=== PATIENT | male | born 1940 | race Caucasian/White ===

== ENCOUNTER 2021-06-30 05:24 | Day surgery (SDC) | payer MEDICARE, BC ==
[~2021-06-30] VITALS: Ht 175.3 cm; Wt 72.5 kg
[2021-06-30] VITALS (13 sets, daily range): BP systolic 148–174; BP diastolic 52–85; PULSE 58–98; TEMP 97.1–98.1
[~2021-06-30 05:24] MED LIST: ELIQUIS 2.5 PO; ELIQUIS 5MG PO; FLOMAX 0.40.4 MG/CAP PO; LANTUS SOLOS100 U/ML SQ; LIPITOR20 MG PO; PHOSLO667 MG PO; PRILOSEC 20MG20 MG PO; SODIUM BICARBO650 MG PO; TEMOVATE OINT30 GM TOP; TOPROL XL 50MG50 MG PO; ZESTRIL 10MG10 MG PO; ZESTRIL 5MG5 MG PO
--- NOTE | 2021-06-30 05:45 | NUR ---
Patient admitted to bay #1 via ambulation. Medications and HX reviewed. Consent reviewed and signed. Patient verbalized understanding of procedure. Patient changed into a clean gown and used the bathroom prior to IV start. IV started in R hand on first attempt with #20. NS is infusing without difficulty and set to 100ml/hr. Blood sugar obtained: 120. Vitals obtained and bp is high, anesthesia notified. Patient admitted to having coffee with cream and sugar at around 0300. DR and anesthesia notified. No new orders. Warm blaket provided. Non-slip socks are on. Kip, his son was present to say goodby before Erin took him back to surgery.
[2021-06-30] MEDS ORDERED: MUCINEX 60600 MG/TA1 PO (07:08)
[2021-06-30] MEDS ORDERED: FERROUS SU325 MG/TAB PO (07:08)
[2021-06-30] MEDS ORDERED: 00186-0372-20 IH (07:08)
--- NOTE | 2021-06-30 10:00 | NUR ---
Pt transferred to surgical status at this time, remains in PACU, awaiting RN to call for report. Son brought to the bedside, post-op vitals started. Pt reports he is thisty and hungry, provided with jello and orange juice. Call light in reach, bed to low position.
--- NOTE | 2021-06-30 10:15 | NUR ---
Pt tolerates fluids and jello well, denies pain or needs, CBI infusing well with output clear-pink. VSS. Call light in reach.
--- NOTE | 2021-06-30 10:39 | NUR ---
Report given to OMAR Lutz. Pt to surgical room 322 at this time by OMAR Hampton, belongings at bedside and son to room.
--- NOTE | 2021-06-30 14:28 | NUR ---
Dr Candelario notified of consult at 9001.
[2021-06-30 15:29] LABS: BASO # 0.1 K/mm3 (0.0-0.2); BASO % 0.8 % (0.0-2.0); EOS # 0.5 K/mm3 (0.0-0.7); EOS % 5.2 % (0-4.0); GRAN # 6.8 K/mm3 (1.4-6.5); GRAN % 77.5 % (42.2-75.2); HEMATOCRIT 37.7 % (42.0-52.0); HEMOGLOBIN 11.4 g/dl (13.5-18.0); LYMPH # 0.8 K/mm3 (1.2-3.4); LYMPH % 8.6 % (20.0-51.0); MEAN CELL VOLUME 99 fl (80.0-100.0); MEAN CORPUSCULAR HEMOGLOBIN 30 pg (27.0-31.0); MEAN CORPUSCULAR HGB CONC 30 g/dl (33.0-37.0); MEAN PLATELET VOLUME 9.2 fl (7.4-10.4); MONO # 0.6 K/mm3 (0.1-0.6); MONO % 7.3 % (1.7-9.3); PLATELET COUNT 162 K/mm3 (130-400); RED BLOOD COUNT 3.81 M/mm3 (4.20-5.60); REDCELL DISTRIBUTION WIDTH-CV 15.6 % (11.5-14.5)
[2021-06-30 15:43] LABS: ALBUMIN 2.5 gm/dL (3.4-4.8); CALCIUM 7.6 mg/dL (8.4-10.2); CREATININE, serum 2.43 mg/dL (0.72-1.25); PHOSPHOROUS 2.6 mg/dL (2.3-4.7); POTASSIUM 4.7 mmol/L (3.5-4.5)
--- NOTE | 2021-06-30 16:10 | NUR ---
Patient alert and oriented, answers questions appropriately. Fay catheter patent. CBI infusing at moderate rate. Urine deep joy, no clots noted. Three way catheter and CBI education provided to patient and son. No c/o at this time.
--- NOTE | 2021-06-30 18:43 | NUR ---
PATIENT TOLERATED HIS HD TX WITH 600ML OF FLUID REMOVED TODAY. NEXT PLANNED HD TX ON Sunday07/04/21 @ 0645 @ [facility] IN [place].
[2021-07-01 04:00] VITALS: BP 143/57; PULSE 77; TEMP 97.3
--- NOTE | 2021-07-01 06:28 | NUR ---
PT IS AWAKE, STATES THAT HE FEELS LIKE HIS SHEETS ARE WET. CBI IS RUNNING @ A SLOW RATE, HEARN CATHETER IS DRAINING PINK ET CLEAR. PT DENIES ANY PAIN. SHEETS ARE CHANGED. DR. CHAVEZ CALLED ET NOTIFIED, NEW ORDER RECEIVED FOR ALEKSANDER DAVILA.
--- NOTE | 2021-07-01 07:05 | NUR ---
PT HAS NO OTHER PROBLEMS THROUGH NIGHT, RESTS IN BED QUIETLY WITH EYES CLOSED. CBI RUNNING @ A SLOW RATE. HEARN CATH DRAINING, PINK ET CLEAR. PT IS GIVEN FRESH ICE WATER ET REQUESTS CRANBERRY JUICE. REPORT IS GIVEN TO MORENA NELSON.
[2021-07-01 09:15] VITALS: BP 147/78; PULSE 67; TEMP 98.1
--- NOTE | 2021-07-01 09:34 | NUR ---
Initial visit; Patient thanked [employer] for looking in on him and offering God's blessings.
--- NOTE | 2021-07-01 10:11 | NUR ---
CBI clamped at this time.
--- NOTE | 2021-07-01 10:54 | NUR ---
TOSHIA met with the patient to discuss discharge plan. The patient lives alone in [place], [place]. He states that his son, Tobi (ph#[phone]), and grandsons live 15 miles away from him. He reports independence with ADLs and does not have any DME. The patient's primary care provider is [facility] in [place] and he receives his medications from the [facility]. He reports no difficulties obtaining his meds. The patient does not have a DPOA-HC, but he reports that he plans on working on one. He states that he has one living child: Tobi. The patient plans to return home upon discharge. He states that Tobi will transport him home. No additional needs at this time. *Discharge plan: home*
[2021-07-01 13:07] VITALS: BP 152/51; PULSE 76; TEMP 98.6
[2021-07-01 16:45] VITALS: BP 155/51; PULSE 73; TEMP 97.8
[2021-07-01 18:57] VITALS: BP 142/63; PULSE 86; TEMP 97.8
--- NOTE | 2021-07-01 20:25 | NUR ---
Pt. sitting up in bed. Pt. is A&OX3, assessment complete. INT to rt. hand patent. Pt. denies pain. Fay catheter, CBI clamped. Urine is light pink at this time. Pt. denies further needs, call light within reach.
[2021-07-01 23:18] VITALS: BP 156/60; PULSE 77; TEMP 98
[2021-07-02 03:10] VITALS: BP 168/58; PULSE 69; TEMP 98.1
[2021-07-02 07:54] VITALS: BP 163/80; PULSE 95; TEMP 97.8
--- NOTE | 2021-07-02 08:30 | NUR ---
Patient sitting up in chair. Ready for discharge. He was primed & pulled this am and has voided x3. Tolerated breakfast. Dr.Evangelidids santiago
--- NOTE | 2021-07-02 09:33 | NUR ---
Patient voided x5. verified he did not need to complete 6 bottle due to being a dialysis patient. Reviewed with patient all discharge paperwork. he verified understanding. No questions or concerned. Patient ambulated out with all belongings. He is thankful to be going home
== END 2021-07-02 09:36 | disposition home or self-care (01) ==
LOC: SDCO 05:24 → INPTSU 05:27 → SDCO 07:30 → SURG 10:51 → SDCO 07-02 09:36
DX: N40.1 Benign prostatic hyperplasia with lower urinary tract symptoms (principal); N13.8 Other obstructive and reflux uropathy; R33.8 Other retention of urine; G47.33 Obstructive sleep apnea (adult) (pediatric); Z91.19 Patient's noncompliance with other medical treatment and regimen; I48.91 Unspecified atrial fibrillation; F17.210 Nicotine dependence, cigarettes, uncomplicated; J44.9 Chronic obstructive pulmonary disease, unspecified; J84.9 Interstitial pulmonary disease, unspecified; E11.22 Type 2 diabetes mellitus with diabetic chronic kidney disease; I12.9 Hypertensive chronic kidney disease with stage 1 through stage 4 chronic kidney disease, or unspecified chronic kidney disease; N18.4 Chronic kidney disease, stage 4 (severe); E66.9 Obesity, unspecified; D63.1 Anemia in chronic kidney disease; Z99.2 Dependence on renal dialysis; Z79.4 Long term (current) use of insulin; Z79.899 Other long term (current) drug therapy; Z79.01 Long term (current) use of anticoagulants; Z99.81 Dependence on supplemental oxygen
CPT/HCPCS: OP; J0690; J1644; J1815; J2250; J2704; J3010; J7030